=== PATIENT | female | born 1975 | race Caucasian/White ===

== ENCOUNTER 2017-10-07 14:31 | Outpatient (CLI) | payer OTHER ==
--- NOTE | 2017-10-07 16:26 | ULT ---
SOFT TISSUE ULTRASOUND OF THE RIGHT NECK: INDICATION: There is soft tissue swelling right neck. FINDINGS: The site of swelling involves the right parotid gland. The parotid gland is imaged with ultrasound a nd appears slightly enlarged and possibly edematous when comparison is made to the left gland. A sma ll lymph node is seen which also has similar appearance to a lymph node seen in the left parotid. IMPRESSION: The right parotid appears mildly enlarged and possibly edematous. Parotitis might be a consideration . If symptoms persist, recommend better evaluation with CT neck with IV contrast. POS: [id number]
== END 2017-10-07 14:32 | disposition home or self-care (01) ==
LOC: ULT 14:31
PROVIDERS: ATTEND Family Medicine
DX: K11.1 Hypertrophy of salivary gland (principal)
CPT/HCPCS: 76536

== ENCOUNTER 2017-12-01 11:56 | Outpatient (CLI) | payer OTHER | END 2017-12-01 11:57 | disposition home or self-care (01) | LOC: BICCT 11:56 | PROVIDERS: ATTEND Internal Medicine Interventional Cardiology | DX: R07.9 Chest pain, unspecified (principal); I25.10 Atherosclerotic heart disease of native coronary artery without angina pectoris; Z82.49 Family history of ischemic heart disease and other diseases of the circulatory system | CPT/HCPCS: 75571 ==

== ENCOUNTER 2019-06-14 13:33 | Emergency (ER) | payer OTHER ==
[2019-06-14 14:42] LABS: #Basophils 0.1 thou/uL (0.0-0.2); #Eosinphils 0.2 thou/uL (0.0-0.7); #Lymphocytes 3.6 thou/uL (1.20-3.40); #Monocytes 0.6 thou/uL (0.11-0.59); #Neutrophils 6.6 thou/uL (1.40-6.50); %Basophils 0.7 % (0.0-1.0); %Eosinophils 1.7 % (0.0-10.0); %Lymphocytes 32.2 % (21.0-51.0); %Monocytes 5.6 % (0.0-10.0); %Neutrophils 59.8 % (42.0-75.0); Hemoglobin 13.9 g/dL (12.0-16.0); Mean Corpuscular Hemoglobin 29.9 pg (27.0-31.0); Mean Corpuscular Volume 85.3 fL (78.0-98.0); Mean Platelet Volume 7.9 fL (7.4-10.4); Platelet Count 332 thou/uL (130-400); RBC Distribution Width 11.6 % (11.5-14.5); Red Blood Cell (RBC) Count 4.67 mill/uL (4.20-5.40)
[2019-06-14 15:08] LABS: ALT (SGPT) 23 U/L (8-55); AST (SGOT) 18 U/L (5-34); Albumin 4.5 g/dL (3.5-5.0); Alkaline Phosphatase 78 U/L (40-110); Anion Gap 11 mmol/L (10-20); BUN (Urea Nitrogen) 14 mg/dL (7.0-18.7); Bilirubin, Total 0.3 mg/dL (0.2-1.2); Calc. Creatinine Clearance 0 mL/min (70-130); Calcium 9.7 mg/dL (7.8-10.44); Carbon Dioxide 29 mmol/L (22-29); Chloride 99 mmol/L (98-107); Estimated GFR-MDRD 77; Glucose 101 mg/dL (70-105); Lipase 29 U/L (8-78); Potassium 4.2 mmol/L (3.5-5.1); Protein, Total 8.5 g/dL (6.0-8.3); Sodium 135 mmol/L (136-145)
--- NOTE | 2019-06-14 15:13 | RAD ---
XR Chest 1 View Portable HISTORY: Chest pain COMPARISON: 04/19/2016 FINDINGS: The heart size is normal. The lungs are well expanded without focal areas of consolidation, pneumothorax or pleural effusions. IMPRESSION: No radiographic evidence of acute cardiopulmonary process.
[2019-06-14] MEDS ORDERED: Aspirin Chewable 81 MG TAB ONE (15:57)
[2019-06-14 17:46] LABS: Troponin I Less than 0.010 ng/mL (< 0.028)
== END 2019-06-14 17:52 | disposition home or self-care (01) ==
LOC: ERS 13:33
DX: R07.89 Other chest pain (principal); E03.9 Hypothyroidism, unspecified; E78.5 Hyperlipidemia, unspecified; I10 Essential (primary) hypertension; F41.9 Anxiety disorder, unspecified; F17.210 Nicotine dependence, cigarettes, uncomplicated; Z79.82 Long term (current) use of aspirin; Z79.899 Other long term (current) drug therapy
CPT/HCPCS: 36415; 71045; 80053; 83690; 84484; 85025; 93005